=== PATIENT | female | born 1990 | race Caucasian/White ===

== ENCOUNTER → 2020-04-02 13:55 | Outpatient (BNVA) | payer OTHER, SELFPAY | PROVIDERS: Visit Provider Nurse Practitioner Women's Health | DX: Z01.419 Encounter for gynecological examination (general) (routine) without abnormal findings (principal); R03.0 Elevated blood-pressure reading, without diagnosis of hypertension | CPT/HCPCS: 88175 ==

== ENCOUNTER → 2022-06-30 12:20 | Outpatient (BNVA) | payer OTHER, SELFPAY | PROVIDERS: Visit Provider Emergency Medicine | DX: J02.9 Acute pharyngitis, unspecified (principal); J00 Acute nasopharyngitis [common cold] | CPT/HCPCS: 87400; 87880 ==